=== PATIENT | male | born 1965 | race Caucasian/White ===

== ENCOUNTER 2023-12-20 15:18 | Inpatient (IN) | payer MEDICARE, MEDICAID ==
[~2023-12-20] VITALS: Ht 177.8 cm; Wt 105.0 kg
[2023-12-20] MEDS ORDERED: METF-1211 PO (15:33)
[2023-12-20] MEDS ORDERED: METO25 PO (15:33)
[2023-12-20] MEDS ORDERED: BACL5TAB PO (15:33)
[2023-12-20] MEDS ORDERED: OXYC-618 PO (15:33)
[2023-12-20] MEDS ORDERED: METO-408 PO (15:33)
[2023-12-20 15:34] LABS: BASOPHILS % (AUTO) 1.1 % (0.0-2.0); EOSINOPHILS % (AUTO) 3.5 % (1.0-6.0); HEMATOCRIT 45.4 % (41-53); HEMOGLOBIN 14.4 g/dL (13.5-17.5); LYMPHOCYTES # (AUTO) 2.5 K/uL (1.0-4.8); LYMPHOCYTES % (AUTO) 17.9 % (22.0-44.0); MEAN CORPUSCULAR HEMOGLOBIN 26.5 pg (26.0-34.0); MEAN CORPUSCULAR HGB CONC 31.8 G/dL (31.0-37.0); MEAN CORPUSCULAR VOLUME 83 fL (80-100); MONOCYTES % (AUTO) 6.8 % (2.0-9.0); NEUTROPHILS % (AUTO) 70.7 % (40.0-70.0); PLATELET COUNT (AUTO) 264 K/uL (150-450); RED BLOOD CELL COUNT(AUTO) 5.44 MIL/uL (4.50-5.90); RED CELL DISTRIBUTION WIDTH 17.5 % (11.5-14.5); WHITE BLOOD COUNT (AUTO) 14.2 K/uL (4.5-11.0)
[2023-12-20 15:52] LABS: PROTHROMBIN TIME 10.9 SEC (9.4-11.6); TROPONIN I-HIGH SENSITIVITY Less Than 4 ng/L (<76)
[2023-12-20] MEDS ORDERED: SODIUM CHLORIDE 0.9% 100 ML ONE (15:59)
[2023-12-20] MEDS ORDERED: IOHEXOL 350 MG/ML 100 ML VIAL ONE (15:59)
[2023-12-20 16:12] LABS: APPEARANCE,URINE HAZY (CLEAR); BILIRUBIN,URINE NEGATIVE (NEGATIVE); COLOR,URINE YELLOW (YELLOW); GLUCOSE, URINE (UA) NEGATIVE (NEGATIVE); KETONES,URINE NEGATIVE (NEGATIVE); LEUKOCYTE ESTERASE ,URINE LARGE (NEGATIVE); NITRATE,URINE NEGATIVE (NEGATIVE); OCCULT BLOOD,URINE MODERATE (NEGATIVE); PROTEIN,URINE 100-200,SEE CONFIRM mg/dL (NEGATIVE); SPECIFIC GRAVITIY, URINE 1.017 (1.003-1.030); UROBILINOGEN,URINE <=1.0 mg/dL (<=1.0)
[2023-12-20] MEDS: LevETIRAcetam 1,000 MG in DEXTROSE 5%-WATER 100 ML IV ONE (16:17)
[2023-12-20 16:21] LABS: CALCIUM, TOTAL 8.6 mg/dL (8.8-10.5); CREATININE 1.47 mg/dL (0.60-1.30); POTASSIUM 4.4 mmol/L (3.5-5.1)
[2023-12-20 16:25] LABS: ALBUMIN 3.4 g/dL (3.4-5.0); BILIRUBIN,TOTAL 0.9 mg/dL (0.1-1.0); TOTAL PROTEIN, SERUM 8.4 g/dL (6.4-8.2)
[2023-12-20 16:25] LABS: ALCOHOL, URINE DRUG SCREEN NEGATIVE (NEGATIVE); AMPHET/METH SCREEN,URINE NEGATIVE (NEGATIVE); BARBITURATE SCREEN, URINE NEGATIVE (NEGATIVE); BENZODIAZEPINES SCREEN,URINE POSITIVE (NEGATIVE); CANNABINOID SCREEN,URINE POSITIVE (NEGATIVE); COCAINE SCREEN,URINE NEGATIVE (NEGATIVE); METHADONE SCREEN, URINE NEGATIVE (NEGATIVE); OPIATE SCREEN,URINE POSITIVE (NEGATIVE); PHENCYCLIDINE SCREEN,URINE NEGATIVE (NEGATIVE)
[2023-12-20 16:26] LABS: ALCOHOL, BLOOD (SERUM) < 3 mg/dL (0-10)
[2023-12-20 16:45] LABS: SULFOSALICYLIC ACID,URINE 1+ (Negative); WBC,URINE 26-50 /HPF (0-5)
[2023-12-20 16:46] LABS: BACTERIA,URINE Many /HPF (None Seen); SQUAMOUS EPITHELIAL CELL,UR None Seen /LPF (None Seen)
[2023-12-20 16:57] LABS: ACETAMINOPHEN < 2 mcg/mL (10-30)
[2023-12-20] MEDS: SODIUM CHLORIDE 0.9% 2,200 ML IV ONE (17:05)
[2023-12-20] MEDS: CefTRIAXone 1 GM/DEXTROSE 50 ML IV ONE (17:07)
[2023-12-20 18:31] LABS: LACTIC ACID 1.6 mmol/L (0.4-2.0)
[2023-12-20] MEDS ORDERED: ONDANSETRON HCL 4 MG/2 ML VIAL IVP PRN (19:15)
[2023-12-20] MEDS: HEPARIN SODIUM,PORCINE 5,000 UNITS/ML VIAL SQ SCH (20:21)
[2023-12-21] VITALS: BP 156/66; PULSE 73; RESP 20; TEMP 98; O2SAT 98
[2023-12-21 04:00] VITALS: BP 149/72; PULSE 79; RESP 20; TEMP 97.8; O2SAT 97
[2023-12-21 04:09] LABS: TROPONIN I-HIGH SENSITIVITY 6 ng/L (<76)
[2023-12-21 07:41] LABS: BASOPHILS % (AUTO) 0.9 % (0.0-2.0); EOSINOPHILS % (AUTO) 3.1 % (1.0-6.0); HEMATOCRIT 47.8 % (41-53); HEMOGLOBIN 15.2 g/dL (13.5-17.5); LYMPHOCYTES # (AUTO) 1.2 K/uL (1.0-4.8); LYMPHOCYTES % (AUTO) 11.3 % (22.0-44.0); MEAN CORPUSCULAR HEMOGLOBIN 26.6 pg (26.0-34.0); MEAN CORPUSCULAR HGB CONC 31.7 G/dL (31.0-37.0); MEAN CORPUSCULAR VOLUME 84 fL (80-100); MONOCYTES # (AUTO) 0.5 K/uL (0.1-1.0); MONOCYTES % (AUTO) 4.6 % (2.0-9.0); NEUTROPHILS # (AUTO) 8.7 K/uL (1.8-7.7); NEUTROPHILS % (AUTO) 80.1 % (40.0-70.0); PLATELET COUNT (AUTO) 250 K/uL (150-450); RED CELL DISTRIBUTION WIDTH 17.2 % (11.5-14.5); WHITE BLOOD COUNT (AUTO) 10.8 K/uL (4.5-11.0)
[2023-12-21 08:00] VITALS: BP 132/81; PULSE 93; RESP 18; TEMP 98.1; O2SAT 95
[2023-12-21 08:08] LABS: ANION GAP 12 mmol/L (8-16); CALCIUM, TOTAL 8.8 mg/dL (8.8-10.5); CARBON DIOXIDE 20 mmol/L (22-29); CHLORIDE 110 mmol/L (98-107); CREATININE 0.93 mg/dL (0.60-1.30); GLOMERULAR FILTR. RATE CALC > 60 mL/min (>60); GLUCOSE,RANDOM 136 mg/dL (70-110); POTASSIUM 4.2 mmol/L (3.5-5.1); SODIUM SERUM 142 mmol/L (136-145); UREA NITROGEN, BLOOD 14 mg/dL (7-18)
[2023-12-21] MEDS: ASPIRIN 81 MG CHEWABLE TABLET PO SCH (09:00)
[2023-12-21] MEDS: ATORVASTATIN CALCIUM 40 MG TABLET PO SCH (09:00)
[2023-12-21] MEDS ORDERED: SODIUM CHLORIDE 0.9% 250 ML IV ONE (09:29)
[2023-12-21] MEDS: PIPERACILLIN/TAZO 3.375 GM/D5W 50 ML IV SCH (09:36)
[2023-12-21] MEDS: RINGERS SOLUTION,LACTATED 500 ML IV ONE (11:26)
[2023-12-21 11:48] VITALS: BP 148/99; PULSE 85; RESP 18; TEMP 98; O2SAT 98
[2023-12-21] MEDS ORDERED: CefTRIAXone 1 GM/DEXTROSE 50 ML IV SCH (13:00)
[2023-12-21 15:37] VITALS: BP 160/92; PULSE 99; RESP 18; TEMP 97.7; O2SAT 99
[2023-12-21] MEDS: ACETAMINOPHEN 325 MG TABLET PO PRN (16:29)
[2023-12-21] MEDS ORDERED: ONDA-243 PO (19:05)
[2023-12-21 19:44] VITALS: BP 156/76; PULSE 108; RESP 18; TEMP 98.4; O2SAT 96
[2023-12-22 00:45] VITALS: BP 111/59; PULSE 100; RESP 18; TEMP 98.4; O2SAT 97
[2023-12-22 05:11] VITALS: BP 118/86; PULSE 90; RESP 18; TEMP 98.1; O2SAT 98
[2023-12-22 07:40] VITALS: BP 127/76; PULSE 84; RESP 16; TEMP 97.9; O2SAT 95
[2023-12-22 11:16] VITALS: BP 132/86; PULSE 89; RESP 17; TEMP 99; O2SAT 96
[2023-12-22] MEDS ORDERED: ONDANSETRON 4 MG RAPDIS TABLET PO PRN (15:15)
[2023-12-22 15:32] VITALS: BP 132/78; PULSE 87; RESP 18; TEMP 98.5; O2SAT 99
[2023-12-22] MEDS: METOPROLOL SUCCINATE 25 MG ER TABLET PO SCH (15:35)
[2023-12-22] MEDS: BACLOFEN 10 MG TABLET PO SCH (17:05)
[2023-12-22] MEDS: MetFORMIN HCL 500 MG TABLET PO SCH (17:05)
[2023-12-22 20:25] VITALS: BP 130/72; PULSE 82; RESP 19; TEMP 98.1; O2SAT 96
[2023-12-23 00:19] VITALS: BP 151/76; PULSE 85; RESP 19; TEMP 97.9; O2SAT 98
[2023-12-23 00:30] VITALS: BP 117/68; PULSE 73; RESP 20; TEMP 97.8; O2SAT 96
[2023-12-23] MEDS ORDERED: SODIUM CHLORIDE 0.9% 500 ML IV ONE (01:28)
[2023-12-23 05:02] VITALS: BP 128/76; PULSE 75; RESP 18; TEMP 98.1; O2SAT 100
[2023-12-23 08:00] VITALS: BP 133/78; PULSE 73; RESP 19; TEMP 98.1; O2SAT 98
[2023-12-23 08:07] LABS: HEMATOCRIT 44.7 % (41-53); HEMOGLOBIN 14.3 g/dL (13.5-17.5); LYMPHOCYTES # (AUTO) 0.7 K/uL (1.0-4.8); LYMPHOCYTES % (AUTO) 11.6 % (22.0-44.0); MEAN CORPUSCULAR HEMOGLOBIN 26.7 pg (26.0-34.0); MEAN CORPUSCULAR VOLUME 83 fL (80-100); MONOCYTES # (AUTO) 0.5 K/uL (0.1-1.0); MONOCYTES % (AUTO) 7.6 % (2.0-9.0); NEUTROPHILS # (AUTO) 4.5 K/uL (1.8-7.7); NEUTROPHILS % (AUTO) 72.8 % (40.0-70.0); PLATELET COUNT (AUTO) 204 K/uL (150-450); RED BLOOD CELL COUNT(AUTO) 5.37 MIL/uL (4.50-5.90); RED CELL DISTRIBUTION WIDTH 16.9 % (11.5-14.5); WHITE BLOOD COUNT (AUTO) 6.1 K/uL (4.5-11.0)
[2023-12-23 08:21] LABS: ANION GAP 11 mmol/L (8-16); CALCIUM, TOTAL 8.8 mg/dL (8.8-10.5); CARBON DIOXIDE 23 mmol/L (22-29); CHLORIDE 103 mmol/L (98-107); CREATININE 1.03 mg/dL (0.60-1.30); GLOMERULAR FILTR. RATE CALC > 60 mL/min (>60); GLUCOSE,RANDOM 128 mg/dL (70-110); POTASSIUM 4.1 mmol/L (3.5-5.1); SODIUM SERUM 137 mmol/L (136-145); UREA NITROGEN, BLOOD 13 mg/dL (7-18)
[2023-12-23] MEDS: OxyCODONE HCL/ACETAMINOPHEN 10-325 MG TABLET PO PRN (08:33)
[2023-12-23 16:00] VITALS: BP 123/78; PULSE 64; RESP 20; TEMP 98.5; O2SAT 100
[2023-12-23 19:38] VITALS: BP 118/69; PULSE 70; RESP 20; TEMP 98.4; O2SAT 98
[2023-12-24 04:00] VITALS: BP 114/66; PULSE 72; RESP 18; TEMP 97.7; O2SAT 99
[2023-12-24 07:40] VITALS: BP 124/74; PULSE 71; RESP 18; TEMP 98; O2SAT 98
[2023-12-24] MEDS ORDERED: CIPR500T10 PO (10:09)
[2023-12-24] MEDS ORDERED: ATOR40TA71 PO (10:09)
[2023-12-24] MEDS ORDERED: ASPI-1450 PO (10:09)
== END 2023-12-24 12:30 | disposition home health service (06) | DRG 871 ==
LOC: EMS 15:24 → EDH 19:09 → 5S 21:08 → 6S 12-23 00:26
PROVIDERS: ADMIT Internal Medicine; ATTEND Internal Medicine
DX: A41.9 Sepsis, unspecified organism (principal); N17.0 Acute kidney failure with tubular necrosis; G93.41 Metabolic encephalopathy; L89.153 Pressure ulcer of sacral region, stage 3; N17.9 Acute kidney failure, unspecified; N39.0 Urinary tract infection, site not specified; G91.9 Hydrocephalus, unspecified; E11.9 Type 2 diabetes mellitus without complications; G89.4 Chronic pain syndrome; B96.20 Unspecified Escherichia coli [E. coli] as the cause of diseases classified elsewhere; Z93.3 Colostomy status; Z93.6 Other artificial openings of urinary tract status
CPT/HCPCS: 70496; 70498; 71045; 80048; 80053; 80307; 81001; 81002; 82948; 83605; 83735; 84145; 84484; 85025; 85610; 85730; 87040; 87086; 87186; 92610; 93005; 97163; 97530; 99285; G0480; G0481; J0696; J0712; J1644; J2405; J2543; J7040; J7050; J7060; J7120; 36415-L1; 36415-TC; 70450; 70450-TC